=== PATIENT | female | born 1945 | race Caucasian/White ===

== ENCOUNTER 2019-09-23 09:46 | Outpatient (CLI) | payer MEDICARE, OTHER, SELFPAY ==
[2019-09-23 10:28] LABS: Basophils Percent Auto 0.4 % (0.2-1.2); Eosinophils Percent Auto 0.6 % (0-4.4); Immature Granulocyte Percent A 1.9 % (0-0.5); Immature Platelet Fraction Pct 7.3 % (0.9-11.2); Lymphocytes Absolute Auto 1.76 K/mm3 (0.9-3.2); Lymphocytes Percent Auto 32.7 % (18.3-44.2); Mean Corpuscular HGB Conc 31.8 g/dl (32-36); Mean Corpuscular Hemoglobin 30.2 pg (26-34); Mean Corpuscular Volume 94.8 fl (80-100); Mean Platelet Volume 10.8 fl (7.4-10.4); Monocytes Absolute Auto 1.1 K/mm3 (0.1-0.6); Monocytes Percent Auto 20.8 % (2.6-8.5); Neutrophils Absolute Auto 2.4 K/mm3 (1.3-6.7); Neutrophils Percent Auto 43.6 % (45.5-73.1); Platelet Count Result 78 k/mm3 (150-375); Red Blood Count 4.64 M/mm3 (4.2-5.4); Red Cell Distribution Width 13.6 % (11.5-14.5); White Blood Count 5.4 K/mm3 (4.5-10.0)
[2019-09-23 10:41] LABS: Alanine Aminotransferase 22 U/L (4-35); Albumin Level 4.6 g/dL (3.5-5.1); Alkaline Phosphatase 60 U/L (38-126); Aspartate Amino Transferase 29 U/L (14-36); Bilirubin,Total 0.5 mg/dL (0.2-1.3); Blood Urea Nitrogen 16 mg/dL (7-17); Calcium 9.2 mg/dL (8.4-10.2); Carbon Dioxide 27 mmol/L (22-30); Chloride 104 mmol/L (98-107); Estimated Glomerular Filt Rate 55; Glucose 124 mg/dL (65-105); Potassium 4.5 mmol/L (3.4-5.0); Sodium 137 mmol/L (137-145)
== END 2019-09-23 09:47 | disposition home or self-care (01) ==
PROVIDERS: PCP Family Medicine; Visit Provider Internal Medicine Medical Oncology
DX: C50.412 Malignant neoplasm of upper-outer quadrant of left female breast (principal); Z17.0 Estrogen receptor positive status [ER+]; D69.6 Thrombocytopenia, unspecified
CPT/HCPCS: 36415; 80053; 85025; 85055

== ENCOUNTER 2020-01-14 07:36 | Outpatient (CLI) | payer MEDICARE, OTHER, SELFPAY ==
--- NOTE | ~2020-01-14 | US_ITS ---
EXAMINATION: US abdomen limited DATE: 01/14/2020 08:32 INDICATION: Thrombocytopenia. TECHNIQUE: Multiple grayscale and Doppler ultrasound images of the abdomen were obtained. COMPARISON: Ultrasound 02/08/2019, PET CT 01/18/2017 FINDINGS: The spleen is normal in size and measures 10.0 cm. No abnormal mass. IMPRESSION: 1. Normal spleen. Reviewed, dictated and finalized at location A. IMPRESSION: 1. Normal spleen.
== END 2020-01-14 07:37 | disposition home or self-care (01) ==
PROVIDERS: PCP Family Medicine; Visit Provider Internal Medicine Medical Oncology
DX: D69.6 Thrombocytopenia, unspecified (principal)
CPT/HCPCS: 76705

== ENCOUNTER 2020-04-17 09:58 | Outpatient (CLI) | payer MEDICARE, OTHER, SELFPAY ==
[2020-04-17 10:28] LABS: Basophils Percent Auto 0.8 % (0.2-1.2); Eosinophils Absolute Auto 0.1 K/mm3 (0-0.3); Eosinophils Percent Auto 1.3 % (0-4.4); Hematocrit 43.5 % (37.0-47.0); Hemoglobin 14.1 g/dL (12.0-15.0); Immature Granulocyte Absolute 0.05 K/mm3 (0.00-0.031); Immature Granulocyte Percent A 1.1 % (0-0.5); Immature Platelet Fraction Pct 5.5 % (0.9-11.2); Lymphocytes Absolute Auto 1.37 K/mm3 (0.9-3.2); Lymphocytes Percent Auto 28.8 % (18.3-44.2); Mean Corpuscular HGB Conc 32.4 g/dl (32-36); Mean Corpuscular Hemoglobin 30.4 pg (26-34); Mean Corpuscular Volume 93.8 fl (80-100); Mean Platelet Volume 10.8 fl (7.4-10.4); Monocytes Absolute Auto 0.9 K/mm3 (0.1-0.6); Monocytes Percent Auto 19.2 % (2.6-8.5); Neutrophils Absolute Auto 2.3 K/mm3 (1.3-6.7); Neutrophils Percent Auto 48.8 % (45.5-73.1); Platelet Count Result 96 k/mm3 (150-375); Red Blood Count 4.64 M/mm3 (4.2-5.4); Red Cell Distribution Width 13.7 % (11.5-14.5); White Blood Count 4.8 K/mm3 (4.5-10.0)
[2020-04-17 11:00] LABS: Alanine Aminotransferase 34 U/L (4-35); Albumin Level 4.5 g/dL (3.5-5.1); Alkaline Phosphatase 62 U/L (38-126); Anion Gap 12 mmol/L (8-16); Aspartate Amino Transferase 38 U/L (14-36); Bilirubin,Total 0.4 mg/dL (0.2-1.3); Blood Urea Nitrogen 18 mg/dL (7-17); Calcium 9.2 mg/dL (8.4-10.2); Carbon Dioxide 24 mmol/L (22-30); Chloride 106 mmol/L (98-107); Cholesterol 144 mg/dL (0-200); Estimated Glomerular Filt Rate > 60; Glucose 126 mg/dL (65-105); HDL Direct 34 mg/dL; Potassium 4.2 mmol/L (3.4-5.0); Sodium 142 mmol/L (137-145); Triglycerides 152 mg/dL (<150)
[2020-04-17 11:12] LABS: LDL Cholesterol Direct 78 mg/dL
[2020-04-17 11:24] LABS: Free T4 Free Thyroxine 0.97 ng/mL (0.78-2.19); Hemoglobin A1C 6.3 % (<5.7)
[2020-04-17 11:57] LABS: Erythrocyte Sedimentation Rate 18 mm/hr (0-20)
[2020-04-21 03:33] LABS: Ionized Calcium 5.2 mg/dL (4.8-5.6)
[2020-04-22 13:14] LABS: Vitamin D 1,25 (OH)2 Total 74 pg/mL (18-72); Vitamin D2 1,25 (OH)2 <8 pg/mL; Vitamin D3 1,25 (OH)2 74 pg/mL
== END 2020-04-17 09:59 | disposition home or self-care (01) ==
LOC: ANHLAB 10:01
PROVIDERS: PCP Family Medicine; Visit Provider Physician Assistant
DX: I10 Essential (primary) hypertension (principal); Z85.3 Personal history of malignant neoplasm of breast; E03.9 Hypothyroidism, unspecified; R73.03 Prediabetes; E87.2 Acidosis; E55.9 Vitamin D deficiency, unspecified; M89.8X9 Other specified disorders of bone, unspecified site
CPT/HCPCS: 36415; 80053; 80061; 82330; 82652; 83036; 84439; 84443; 85025; 85055; 85652

== ENCOUNTER 2020-05-01 09:16 | Outpatient (CLI) | payer MEDICARE, OTHER, SELFPAY ==
[2020-05-01 09:55] LABS: Basophils Percent Auto 0.4 % (0.2-1.2); Eosinophils Percent Auto 0.5 % (0-4.4); Hemoglobin 14.6 g/dL (12.0-15.0); Immature Granulocyte Percent A 1.8 % (0-0.5); Lymphocytes Absolute Auto 1.56 K/mm3 (0.9-3.2); Lymphocytes Percent Auto 28.2 % (18.3-44.2); Mean Corpuscular HGB Conc 31.7 g/dl (32-36); Mean Corpuscular Hemoglobin 30.4 pg (26-34); Mean Corpuscular Volume 95.6 fl (80-100); Mean Platelet Volume 10.6 fl (7.4-10.4); Monocytes Absolute Auto 1.1 K/mm3 (0.1-0.6); Monocytes Percent Auto 20.4 % (2.6-8.5); Neutrophils Absolute Auto 2.7 K/mm3 (1.3-6.7); Neutrophils Percent Auto 48.7 % (45.5-73.1); Platelet Count Result 98 k/mm3 (150-375); Red Blood Count 4.81 M/mm3 (4.2-5.4); Red Cell Distribution Width 13.6 % (11.5-14.5); White Blood Count 5.5 K/mm3 (4.5-10.0)
[2020-05-01 10:08] LABS: Alanine Aminotransferase 32 U/L (4-35); Albumin Level 4.5 g/dL (3.5-5.1); Alkaline Phosphatase 54 U/L (38-126); Anion Gap 10 mmol/L (8-16); Aspartate Amino Transferase 45 U/L (14-36); Bilirubin,Total 0.5 mg/dL (0.2-1.3); Blood Urea Nitrogen 21 mg/dL (7-17); CRP 0.6 mg/dL (<1.0); Calcium 9.4 mg/dL (8.4-10.2); Carbon Dioxide 28 mmol/L (22-30); Chloride 101 mmol/L (98-107); Estimated Glomerular Filt Rate > 60; Glucose 123 mg/dL (65-105); Potassium 4.2 mmol/L (3.4-5.0); Sodium 139 mmol/L (137-145)
== END 2020-05-01 09:17 | disposition home or self-care (01) ==
PROVIDERS: PCP Family Medicine; Visit Provider Internal Medicine Medical Oncology
DX: D69.6 Thrombocytopenia, unspecified (principal)
CPT/HCPCS: 36415; 80053; 85025; 85055; 86140

== ENCOUNTER 2020-06-16 00:57 | Outpatient (CLI) | payer MEDICARE, OTHER, SELFPAY ==
[2020-06-16 18:51] LABS: SARS-CoV-2 RNA PCR Negative
== END 2020-06-16 00:58 | disposition home or self-care (01) ==
LOC: ANHCOVIDDT 00:57
PROVIDERS: PCP Family Medicine; Visit Provider Internal Medicine Gastroenterology
DX: Z01.812 Encounter for preprocedural laboratory examination (principal); Z20.828 Contact with and (suspected) exposure to other viral communicable diseases
CPT/HCPCS: 87635; C9803; U0003

== ENCOUNTER 2020-06-19 01:09 | Day surgery (SDC) | payer MEDICARE, OTHER, SELFPAY ==
[2020-06-11 13:22] VITALS: BMI 30.4
[2020-06-19 13:25] VITALS: BP 151/80; PULSE 74; RESP 20; TEMP 36.1; O2SAT 98; BMI 29.9
--- NOTE | 2020-06-19 13:29 | P.PNAN_ITS ---
Anes - Initial Pre Proc Eval Procedure: Operation Date: 06/19/20 14:30 Proposed Procedures p Screening Colonoscopy - Arturo Mendez MD Date/Time: 06/19/20 13:29 Surgeon: Arturo Mendez MD Pre Op Diagnosis: neoplasm screening Patient Data Age: 74 Gender: F Height: 5 ft 5 in Weight: 81.8 kg Last Vital Signs Temp 97 F L 06/19/20 13:25 Pulse 74 06/19/20 13:25 Resp 20 06/19/20 13:25 BP 151/80 H 06/19/20 13:25 Pulse Ox 98 06/19/20 13:25 Allergies Allergy/AdvReac Type Severity Reaction Status Date / Time GRASSES Allergy Intermediate Itching Uncoded 06/11/20 13:19 [place] Allergy Intermediate Itching Uncoded 06/11/20 13:19 Home Medications Medication Instructions Recorded Confirmed Type levothyroxine 75 mcg tablet 75 mcg PO DAILY #90 tablet 01/13/20 06/11/20 Rx losartan 25 mg tablet 25 mg PO DAILY #90 tablet 01/13/20 06/11/20 Rx cetirizine 10 mg tablet 5 mg PO DAILY PRN 04/14/20 06/11/20 History multivitamin 1 tablet PO DAILY 04/14/20 06/11/20 History sodium,potassium,mag sulfates 17.5 354 ml PO .COMPLEX #354 ml 05/18/20 Rx gram-3.13 gram-1.6 gram oral soln peg 3350 240 gram-electrolytes 240 ml PO Q10M #4000 ml 05/20/20 Rx 22.72 gram-6.72 g-5.84 g powdr for soln cholecalciferol (vitamin D3) 50 mcg PO DAILY 06/11/20 06/11/20 History [Vitamin D3] simvastatin 20 mg PO HS 06/11/20 06/11/20 History Patient hx anesthesia problems: none Family hx anesthesia problems: none PMFSH Past Medical History Medical History (Updated 04/14/20 @ 14:07 by Jing Trejo PA-C) Benign essential HTN Borderline diabetes mellitus HX: breast cancer Hypothyroidism (acquired) Mixed hyperlipidemia Family History Family History Mother Hypertension Family history of elevated blood lipids Father Family history of coronary artery disease, Onset Age: 77 Patient's father is Social History Social History (Updated 04/14/20 @ 13:02 by Phuong Jiménez) Social History: Smoking status: Never smoker Second hand tobacco smoke exposure: No Alcohol intake: never Substance use: never Substance use type: does not use Living arrangements: with family Gender identity (if verbalized by the patient): Female Spiritual care concerns: No Anes - Eval Final PreProcedure Day of Procedure 06/19/20 13:29 Patient weight: overweight Heart: regular rate and rhythm Lungs: clear to auscultation Airway: Mallampati scale class II Neurological: alert and oriented Last oral intake: >/= 8 hours ASA classification: III Emergent: no Anesthetic plan: proceed Anesthesia type and monitoring: general GIVS and standard monitoring Informed Consent: The patient's anesthetic plan and its attendant risks and benefits were discussed with the patient/family/POA. Questions were solicited and answers provided to the satisfaction of the patient/family/POA.
[2020-06-19] MEDS: LACTATED RINGERS 1,000 ML 150 ML IV CONT (13:44)
--- NOTE | 2020-06-19 14:03 | PM.HPGS ---
History of Present Illness History of Present Illness Consent: Risks, benefits, and alternatives have been discussed and questions answered. Patient agrees to proceed with procedure. Chief complaint: neoplasm screening Narrative: Danni Park is a 74 year old female with colon polyps in 2014 Review of Systems Constitutional: Constitutional: Denies headache(s) and Denies weakness Eyes: Eyes: Denies blurry vision ENT: Reports Normal hearing present, Denies headache(s) and Denies neck pain Cardiovascular: Cardiovascular: Denies chest pain and Denies dyspnea Respiratory: Respiratory: Denies dyspnea Gastrointestinal: Gastrointestinal: Reports no additional gastrointestinal complaints Genitourinary: Genitourinary: Denies dysuria Musculoskeletal: Musculoskeletal: Denies neck pain Integumentary/Breasts: Skin/Breast: Denies dry skin Neurologic: Reports Normal hearing present, Denies headache(s) and Denies weakness Psychiatric: Psychiatric: Denies anxiety Endocrine: Endocrine: Denies change in body appearance Hematologic/Lymphatic: Hematologic/Lymphatic: Denies easy bleeding Allergic/Immunologic: Allergic/Immunologic: Denies urticaria PMF Past Medical History Medical History (Updated 06/19/20 @ 14:03 by Arturo Mendez MD) Adenomatous colon polyp Benign essential HTN Borderline diabetes mellitus HX: breast cancer Hypothyroidism (acquired) Mixed hyperlipidemia Family History Family History Mother Hypertension Family history of elevated blood lipids Father Family history of coronary artery disease, Onset Age: 77 Patient's father is Social History Social History (Updated 04/14/20 @ 13:02 by Phuong Jiménez) Social History: Smoking status: Never smoker Second hand tobacco smoke exposure: No Alcohol intake: never Substance use: never Substance use type: does not use Living arrangements: with family Gender identity (if verbalized by the patient): Female Spiritual care concerns: No Meds Home Medications and Allergies Home Medications Medication Instructions Recorded Confirmed Type levothyroxine 75 mcg tablet 75 mcg PO DAILY #90 tablet 01/13/20 06/11/20 Rx losartan 25 mg tablet 25 mg PO DAILY #90 tablet 01/13/20 06/11/20 Rx cetirizine 10 mg tablet 5 mg PO DAILY PRN 04/14/20 06/11/20 History multivitamin 1 tablet PO DAILY 04/14/20 06/11/20 History sodium,potassium,mag sulfates 17.5 354 ml PO .COMPLEX #354 ml 05/18/20 Rx gram-3.13 gram-1.6 gram oral soln peg 3350 240 gram-electrolytes 240 ml PO Q10M #4000 ml 05/20/20 Rx 22.72 gram-6.72 g-5.84 g powdr for soln cholecalciferol (vitamin D3) 50 mcg PO DAILY 06/11/20 06/11/20 History [Vitamin D3] simvastatin 20 mg PO HS 06/11/20 06/11/20 History Allergies Allergy/AdvReac Type Severity Reaction Status Date / Time GRASSES Allergy Intermediate Itching Uncoded 06/11/20 13:19 [place] Allergy Intermediate Itching Uncoded 06/11/20 13:19 Vital Signs Vital Signs - 24 hr 06/19/20 13:25 Temperature 97 F L Pulse Rate 74 Respiratory Rate 20 Blood Pressure 151/80 H Pulse Oximetry 98 Exam Const: General: comfortable and no acute distress HENMT: General nose exam: Normal nares present Eyes: General: appearance normal, both eyes and all related structures Neck: Neck: no JVD Resp: Auscultation: clear to auscultation bilaterally Cardio: Rate: regular rate Rhythm: regular rhythm GI: Inspection: non-distended GI Palp: Yes Soft to palpation Skin: General skin exam: normal color Neuro: General: gait normal Speech: normal speech Extrem: General: normal to inspection Psych: Mental Status: mental status grossly normal Assessment and Plan Assessment and plan (1) Adenomatous colon polyp: Code(s): D12.6 - Benign neoplasm of colon, unspecified Status: Acute Assessment and Pl
[2020-06-19 14:34] VITALS: BP 110/56; PULSE 63; RESP 18; O2SAT 100
[2020-06-19 14:44] VITALS: BP 116/56; PULSE 63; RESP 16; O2SAT 100
[2020-06-19 14:54] VITALS: BP 116/60; PULSE 67; RESP 18; O2SAT 100
== END 2020-06-19 15:00 | disposition home or self-care (01) ==
PROVIDERS: PCP Family Medicine; Visit Provider Internal Medicine Gastroenterology
PROC: 0DJD8ZZ Inspection of Lower Intestinal Tract, Via Natural or Artificial Opening Endoscopic (ICD-10-PCS; CPT 45378; principal; 2020-06-19 14:30)
DX: Z12.11 Encounter for screening for malignant neoplasm of colon (principal); Z86.010 Personal history of colon polyps; I10 Essential (primary) hypertension; R73.03 Prediabetes; Z85.3 Personal history of malignant neoplasm of breast; E03.9 Hypothyroidism, unspecified; E78.2 Mixed hyperlipidemia
CPT/HCPCS: G0105; J2704; J7120

== ENCOUNTER 2021-01-13 09:47 | Emergency (ER) | payer MEDICARE, OTHER, SELFPAY ==
[2021-01-13 09:58] VITALS: BP 113/71; PULSE 89; RESP 20; TEMP 36.1; O2SAT 98
--- NOTE | 2021-01-13 10:00 | ED.URI ---
HPI - URI/Sore Throat General Chief Complaint: Upper Respiratory Infection Stated Complaint: cough Time Seen by Provider: 01/13/21 10:01 Source: patient and RN notes reviewed History of Present Illness HPI Narrative: Patient is a 75-year-old female who presents the urgent care with complaints of a deep harsh cough for the last 5 days. Patient states that she had a fever last night and it resolved on its own . Patient states that for the last 2 days she feels like she is going to vomit with coughing fits. Otherwise denies of any nausea or vomiting. Denies of shortness of breath or chest pain. Patient states she is intermittently taken DayQuil, NyQuil and Robitussin. Denies of any history of pneumonia. No other acute complaints. No acute distress noted. Patient aware of the plan of care. Some parts of this dictation were generated by voice recognition software and may contain typographical and/or grammatical inaccuracies. Related Data Home Medications Medication Instructions Recorded Confirmed cetirizine 10 mg tablet 5 mg PO DAILY PRN 04/14/20 01/13/21 multivitamin 1 tablet PO DAILY 04/14/20 01/13/21 cholecalciferol (vitamin D3) 50 mcg PO DAILY 06/11/20 01/13/21 [Vitamin D3] Allergies Allergy/AdvReac Type Severity Reaction Status Date / Time GRASSES Allergy Intermediate Itching Uncoded 01/13/21 10:06 [place] Allergy Intermediate Itching Uncoded 01/13/21 10:06 Review of Systems Review of Systems: Narrative: CONSTITUTIONAL: Denies fever, chills, or sweats. EYES: Denies visual changes, redness, or discharge. ENT: Denies rhinorrhea, congestion, sore throat, or otalgia. CARDIOVASCULAR: Denies chest pain, palpitations, or edema. RESPIRATORY: Denies cough or dyspnea. GASTROINTESTINAL: Denies abdominal pain, nausea, vomiting, or diarrhea. GENITOURINARY: Denies dysuria or hematuria. SKIN: Denies rash or itching. MUSCULOSKELETAL: Denies back pain, joint pain, or myalgia. NEUROLOGIC: Denies headache, numbness, or weakness. PSYCHIATRIC: Denies anxiety or depression. All other systems reviewed are negative, except as documented in HPI. [facility] Past Medical History Medical History Adenomatous colon polyp Benign essential HTN Borderline diabetes mellitus HX: breast cancer Hypothyroidism (acquired) Mixed hyperlipidemia Family History Family History Mother Hypertension Family history of elevated blood lipids Father Family history of coronary artery disease, Onset Age: 77 Patient's father is Social History Social History (Updated 12/18/20 @ 11:06 by Ana Black [employer]PER[employer]) Social History: Second hand tobacco smoke exposure: No Alcohol intake: never Substance use: never Substance use type: does not use Gender identity (if verbalized by the patient): Female Spiritual care concerns: No Comments At the time of my signature, I reviewed and agree with the nursing past medical, surgical, social, and family history. There is no relevant family history pertinent to the patient complaint. Exam Narrative: Exam Narrative: GENERAL: This is a well-nourished, well-developed patient, in no apparent distress. HEAD: normocephalic, atraumatic. EYES: PERRL. Sclera clear/white. Vision is grossly intact. EARS: External ears normal, auditory canals clear and without drainage, TMs normal without perforation. Hearing grossly intact. NOSE: External nose normal with no obvious nasal discharge, nares without redness, no rhinorrhea. THROAT: Mucous membranes moist, posterior pharynx clear. NECK: Neck supple CARDIOVASCULAR: Regular rate and rhythm without murmurs, gallops, or rubs. RESPIRATORY: Harsh cough noted throughout exam and with deep breathing. Clear to auscultation. Breath sounds equal bilaterally. No wheezes, rales, or rhonchi. SKIN: warm, intact with no suspicious lesions or
[2021-01-13 10:07] VITALS: BP 113/71; PULSE 89; RESP 20; TEMP 36.1; O2SAT 98
== END 2021-01-13 10:41 | disposition home or self-care (01) ==
PROVIDERS: Emergency Provider Nurse Practitioner Family; PCP Family Medicine
DX: J40 Bronchitis, not specified as acute or chronic (principal); I10 Essential (primary) hypertension; E03.9 Hypothyroidism, unspecified; E78.2 Mixed hyperlipidemia; Z85.3 Personal history of malignant neoplasm of breast
CPT/HCPCS: 99213; G0463

== ENCOUNTER 2021-01-21 09:11 | Outpatient (CLI) | payer MEDICARE, OTHER, SELFPAY ==
[2021-01-21 09:56] LABS: Hemoglobin 14.7 g/dL (12.0-15.0); Mean Corpuscular Hemoglobin 29.9 pg (26-34); Mean Corpuscular Volume 93.5 fl (80-100); Mean Platelet Volume 10.3 fl (7.4-10.4); Platelet Count Result 98 k/mm3 (150-375); Red Blood Count 4.92 M/mm3 (4.2-5.4); Red Cell Distribution Width 14.6 % (11.5-14.5); White Blood Count 8.7 K/mm3 (4.5-10.0)
[2021-01-21 10:32] LABS: Alanine Aminotransferase 36 U/L (4-35); Albumin Level 4.5 g/dL (3.5-5.1); Alkaline Phosphatase 62 U/L (38-126); Anion Gap 12 mmol/L (8-16); Aspartate Amino Transferase 41 U/L (14-36); Bilirubin,Total 0.6 mg/dL (0.2-1.3); Blood Urea Nitrogen 21 mg/dL (7-17); Carbon Dioxide 22 mmol/L (22-30); Chloride 101 mmol/L (98-107); Cholesterol 154 mg/dL (0-200); Estimated Glomerular Filt Rate 49; Glucose 132 mg/dL (65-105); HDL Direct 40 mg/dL; Potassium 4.2 mmol/L (3.4-5.0); Sodium 135 mmol/L (137-145); Triglycerides 222 mg/dL (<150)
[2021-01-21 10:33] LABS: Hemoglobin A1C 6.9 % (<5.7)
[2021-01-21 10:36] LABS: CRP < 0.5 mg/dL (<1.0)
[2021-01-21 10:44] LABS: LDL Cholesterol Direct 65 mg/dL
[2021-01-21 10:59] LABS: Free T4 Free Thyroxine 1.25 ng/mL (0.78-2.19)
[2021-01-21 11:14] LABS: Band Neutrophils Percent 7 % (0-6); Lymphocytes Absolute Manual 1.91 K/mm3 (1.1-4.5); Monocytes Absolute Manual 1.39 K/mm3 (0.1-0.90); Monocytes Percent Manual 16 % (3-9); Neutrophils Absolute Manual 5.39 K/mm3 (1.7-7.2); Neutrophils Percent Manual 55 % (46-73); Nucleated Red Blood Cells 1 %; Platelet Estimate Decreased (Adequate); Total Cells Counted 100
[2021-01-21 11:15] LABS: Macrocytosis 1+ (NORMAL)
== END 2021-01-21 09:12 | disposition home or self-care (01) ==
PROVIDERS: PCP Family Medicine; Referring Provider Internal Medicine Medical Oncology; Visit Provider Physician Assistant
DX: E03.9 Hypothyroidism, unspecified (principal); I10 Essential (primary) hypertension; R73.03 Prediabetes; E78.2 Mixed hyperlipidemia; D69.6 Thrombocytopenia, unspecified
CPT/HCPCS: 36415; 80053; 80061; 83036; 84439; 84443; 85025; 85055; 86140

== ENCOUNTER 2021-02-18 09:15 | Outpatient (CLI) | payer MEDICARE, OTHER, SELFPAY ==
[2021-02-18 10:31] LABS: Hematocrit 42.8 % (37.0-47.0); Hemoglobin 13.3 g/dL (12.0-15.0); Immature Platelet Fraction Pct 8.5 % (0.9-11.2); Mean Corpuscular HGB Conc 31.1 g/dl (32-36); Mean Corpuscular Volume 96.6 fl (80-100); Mean Platelet Volume 10.4 fl (7.4-10.4); Platelet Count Result 112 k/mm3 (150-375); Red Blood Count 4.43 M/mm3 (4.2-5.4); Red Cell Distribution Width 14.6 % (11.5-14.5); White Blood Count 5.7 K/mm3 (4.5-10.0)
[2021-02-18 10:45] LABS: Alanine Aminotransferase 28 U/L (4-35); Aspartate Amino Transferase 38 U/L (14-36)
[2021-02-18 12:42] LABS: Band Neutrophils Percent 4 % (0-6); Eosinophils Absolute Manual 0.05 K/mm3 (0.02-0.5); Eosinophils Percent Manual 1 % (0-4); Lymphocytes Absolute Manual 1.02 K/mm3 (1.1-4.5); Metamyelocytes Percent 6 %; Monocytes Absolute Manual 0.91 K/mm3 (0.1-0.90); Monocytes Percent Manual 16 % (3-9); Neutrophils Absolute Manual 3.36 K/mm3 (1.7-7.2); Neutrophils Percent Manual 55 % (46-73); Platelet Estimate Adequate (Adequate); Total Cells Counted 100
[2021-02-18 12:43] LABS: Hypochromasia 1+ (NORMAL); Large Platelets Present
== END 2021-02-18 09:16 | disposition home or self-care (01) ==
LOC: ANHLAB 09:17
PROVIDERS: PCP Family Medicine; Visit Provider Physician Assistant
DX: D72.829 Elevated white blood cell count, unspecified (principal); R74.8 Abnormal levels of other serum enzymes
CPT/HCPCS: 36415; 84450; 84460; 85025; 85055

== ENCOUNTER → 2021-04-02 12:11 | Outpatient (CLI) | payer MEDICARE, OTHER, SELFPAY ==
--- NOTE | ~2021-04-02 | DEXA_ITS ---
Bone Density Report Name: Danni Park Age: 75 Sex: Female Ethnicity: White Date of : 1945 Indication: postmenopausal; screening for osteoporosis; height loss; Referring Provider: Juwan, Baldo [place] Study: Bone densitometry was performed. Exam Date: April 02, 2021 Accession number: [id number] Bone Density: Region BMD T-score Z-score Classification AP Spine (L1, L2, L3) 1.232 1.9 4.2 Normal Femoral Neck (Left) 0.854 0.0 2.0 Normal Total Hip (Left) 1.069 1.0 2.7 Normal Femoral Neck (Right) 0.826 -0.2 1.8 Normal Total Hip (Right) 1.060 1.0 2.7 Normal Total Hip Mean 1.065 1.0 2.7 Normal World Health Organization criteria for BMD impression classify patients as: Normal (T-score at or above -1.0), Osteopenia (T-score between -1.0 and -2.5), or Osteoporosis (T-score at or below -2.5). 10-year Fracture Risk: FRAX not reported because: All T-scores for Spine Total, Hip Total, Femoral Neck at or above -1.0 Clinical Information Provided by Patient: Patient maximum height was 65.5 Menopause Age: 51 No regular weight bearing exercise Does not regularly consume dairy products Drinks caffeinated beverages Onset of menses at age 14 Number of children 3 Impression: The patient has normal bone mass. Discussion: BONE DENSITY IS ABOVE THE MINIMUM DESIRABLE LEVEL AT ALL SKELETAL SITES TESTED. This patient?s bone mineral density is above the minimum desirable level (T-score -1.0 or better) at all sites measured. The patient should follow a healthful lifestyle (good nutrition with adequate calcium and vitamin D, and appropriate weight-bearing exercise). Follow-Up: Consider repeating this study in 5 years or sooner if there is some new clinical indication. Reported by: TOBI on 04/02/2021 12:39:00 PM. Reviewed, dictated and finalized at location [facility] BARAJAS
== END ==
PROVIDERS: PCP Family Medicine; Visit Provider Internal Medicine Medical Oncology
DX: Z78.0 Asymptomatic menopausal state (principal)
CPT/HCPCS: 77080

== ENCOUNTER 2021-07-12 09:51 | Outpatient (CLI) | payer MEDICARE, OTHER, SELFPAY ==
[2021-07-12 10:58] LABS: Alanine Aminotransferase 42 U/L (4-35); Albumin Level 4.8 g/dL (3.5-5.1); Alkaline Phosphatase 69 U/L (38-126); Anion Gap 11 mmol/L (8-16); Aspartate Amino Transferase 44 U/L (14-36); Bilirubin,Total 0.7 mg/dL (0.2-1.3); Blood Urea Nitrogen 18 mg/dL (7-17); Calcium 9.5 mg/dL (8.4-10.2); Carbon Dioxide 28 mmol/L (22-30); Chloride 101 mmol/L (98-107); Cholesterol 154 mg/dL (0-200); Estimated Glomerular Filt Rate 49; Glucose 132 mg/dL (65-110); HDL Direct 40 mg/dL; Potassium 4.1 mmol/L (3.4-5.0); Sodium 140 mmol/L (137-145); Triglycerides 143 mg/dL (<150)
[2021-07-12 10:59] LABS: Hematocrit 46.6 % (37.0-47.0); Hemoglobin 14.9 g/dL (12.0-15.0); Immature Platelet Fraction Pct 8.5 % (0.9-11.2); Mean Corpuscular Hemoglobin 30.5 pg (26-34); Mean Corpuscular Volume 95.5 fl (80-100); Mean Platelet Volume 10.7 fl (7.4-10.4); Platelet Count Result 107 k/mm3 (150-375); Red Blood Count 4.88 M/mm3 (4.2-5.4); Red Cell Distribution Width 14.6 % (11.5-14.5); White Blood Count 4.5 K/mm3 (4.5-10.0)
[2021-07-12 11:09] LABS: LDL Cholesterol Direct 82 mg/dL
[2021-07-12 11:12] LABS: Hemoglobin A1C 6.6 % (<5.7)
[2021-07-12 11:24] LABS: Atypical Lymphocytes Present; Band Neutrophils Percent 2 % (0-6); Eosinophils Absolute Manual 0.04 K/mm3 (0.02-0.5); Eosinophils Percent Manual 1 % (0-4); Lymphocytes Absolute Manual 0.94 K/mm3 (1.1-4.5); Metamyelocytes Percent 1 %; Monocytes Absolute Manual 1.17 K/mm3 (0.1-0.90); Monocytes Percent Manual 26 % (3-9); Neutrophils Absolute Manual 2.29 K/mm3 (1.7-7.2); Neutrophils Percent Manual 49 % (46-73); Platelet Estimate Adequate (Adequate); Total Cells Counted 100
[2021-07-12 11:29] LABS: Total Triiodothyronine (T3) 1.19 NG/ML (0.97-1.69)
[2021-07-12 14:01] LABS: Free T4 Free Thyroxine 1.12 ng/mL (0.78-2.19)
== END 2021-07-12 09:52 | disposition home or self-care (01) ==
PROVIDERS: PCP Family Medicine; Visit Provider Family Medicine
DX: E11.9 Type 2 diabetes mellitus without complications (principal); E03.9 Hypothyroidism, unspecified; I10 Essential (primary) hypertension; E78.2 Mixed hyperlipidemia
CPT/HCPCS: 36415; 80053; 80061; 83036; 84439; 84443; 84480; 85025; 85055

== ENCOUNTER 2022-01-12 08:32 | Outpatient (CLI) | payer MEDICARE, OTHER, SELFPAY ==
[2022-01-12 09:23] LABS: Hematocrit 45.4 % (37.0-47.0); Hemoglobin 14.6 g/dL (12.0-15.0); Immature Platelet Fraction Pct 8.6 % (0.9-11.2); Mean Corpuscular HGB Conc 32.2 g/dl (32-36); Mean Corpuscular Hemoglobin 30.7 pg (26-34); Mean Corpuscular Volume 95.4 fl (80-100); Mean Platelet Volume 11.1 fl (7.4-10.4); Platelet Count Result 106 k/mm3 (150-375); Red Blood Count 4.76 M/mm3 (4.2-5.4); Red Cell Distribution Width 14.7 % (11.5-14.5)
[2022-01-12 09:30] LABS: Eosinophils Absolute Manual 0.05 K/mm3 (0.02-0.5); Eosinophils Percent Manual 1 % (0-4); Lymphocytes Absolute Manual 1.95 K/mm3 (1.1-4.5); Monocytes Absolute Manual 1.15 K/mm3 (0.1-0.90); Monocytes Percent Manual 23 % (3-9); Neutrophils Percent Manual 37 % (46-73); Total Cells Counted 100
[2022-01-12 09:31] LABS: Platelet Estimate Decreased (Adequate)
[2022-01-12 09:32] LABS: Hemoglobin A1C 6.3 % (<5.7)
[2022-01-12 09:36] LABS: Alanine Aminotransferase 59 U/L (6-35); Albumin Level 4.6 g/dL (3.5-5.1); Alkaline Phosphatase 82 U/L (38-126); Anion Gap 10 mmol/L (8-16); Aspartate Amino Transferase 45 U/L (14-36); Bilirubin,Total 0.5 mg/dL (0.2-1.3); Blood Urea Nitrogen 17 mg/dL (7-17); Calcium 9.4 mg/dL (8.4-10.2); Carbon Dioxide 27 mmol/L (22-30); Chloride 103 mmol/L (98-107); Estimated Glomerular Filt Rate > 60; Glucose 127 mg/dL (65-110); Potassium 4.4 mmol/L (3.4-5.0); Sodium 140 mmol/L (137-145)
== END 2022-01-12 08:33 | disposition home or self-care (01) ==
PROVIDERS: PCP Family Medicine; Referring Provider Internal Medicine Medical Oncology; Visit Provider Physician Assistant
DX: C50.412 Malignant neoplasm of upper-outer quadrant of left female breast (principal); Z17.0 Estrogen receptor positive status [ER+]; R73.03 Prediabetes
CPT/HCPCS: 36415; 80053; 83036; 85025; 85055